=== PATIENT | male | born 1990 | race Caucasian/White ===

== ENCOUNTER 2016-07-16 14:40 | Inpatient (IN) | payer OTHER ==
[~2016-07-16] VITALS: Ht 185.4 cm; Wt 139.6 kg
[2016-07-16 15:31] LABS: AUTOMATED NEUTROPHIL # 2.7 TH/MM3 (1.8-7.7); BASOPHIL % 0.7 % (0.0-2.0); EOSINOPHIL # 0.1 TH/MM3 (0-0.4); EOSINOPHIL % 1.7 % (0.0-4.0); HEMATOCRIT 41.6 % (39.0-51.0); HEMO FLAGS DIFF FINAL; LYMPH % 34.7 % (9.0-44.0); LYMPHOCYTE # 1.8 TH/MM3 (1.0-4.8); MEAN CELL VOLUME 86.6 FL (80.0-100.0); MEAN CORPUSCULAR HEMOGLOBIN 29.5 PG (27.0-34.0); MEAN CORPUSCULAR HGB CONC 34.1 % (32.0-36.0); MONO % 12.7 % (0.0-8.0); NEUT % 50.2 % (16.0-70.0); PLATELET COUNT 290 TH/MM3 (150-450); RED BLOOD COUNT 4.81 MIL/MM3 (4.50-5.90); RED CELL DISTRIBUTION WIDTH 13.7 % (11.6-17.2); WHITE BLOOD COUNT 5.3 TH/MM3 (4.0-11.0)
[2016-07-16 15:37] LABS: BLOOD, URINE NEG (NEG); COMMENT (UR) CULT NOT INDICATED; CULTURE IF INDICATED CULT NOT INDICATED; GLUCOSE,URINE NEG (NEG); KETONE, URINE NEG (NEG); MUCUS URINE FEW /lpf (OCC); NITRITE,URINE NEG (NEG); URINE COLOR YELLOW (YELLW/STRAW)
--- NOTE | 2016-07-16 15:53 | PD ---
HPI Chief Complaint: Medical Clearance Time Seen by Provider: 15:00 Travel History International Travel<30 days: No Contact w/Intl Traveler<30days: No Traveled to known affect area: No History of Present Illness HPI Patient is a 26-year-old male presenting to the emergency Department under Mitchell act for suicidal ideations. Patient states he suffered with depression for most of his life however he was formally diagnosed one year ago. Patient is followed at the [place]. Patient states that he's had suicidal thoughts, last night he thought of hanging himself. He has no previous suicide attempts. Patient previously in the [employer], he was overseas and has been out of his service for approximately one year. Patient has no physical complaints, he does state he suffers with anxiety as well. [facility] Past Medical History Anxiety: Yes Depression: Yes Past Surgical History Surgical History: No Previous Surgery Social History Alcohol Use: No Tobacco Use: Yes (occasionally) Substance Use: No Allergies-Medications (Allergen,Severity, Reaction): Coded Allergies: No Known Allergies (Unverified , 07/16/16) Reported Meds & Prescriptions Reported Meds & Active Scripts Active Reported Prozac (Fluoxetine HCl) 40 Mg Cap 80 Mg PO DAILY Wellbutrin Xl 24 HR (Bupropion HCl) 150 Mg Tab 150 Mg PO DAILY Review of Systems Except as stated in HPI: all other systems reviewed are Neg Psychiatric: Positive: Anxiety, Depression, Suicidal Ideations Physical Exam Narrative GENERAL: Well-developed, well-nourished, alert male. Resting comfortably in no acute distress. SKIN: Warm and dry. HEAD: Atraumatic. Normocephalic. EYES: Pupils equal and round. No scleral icterus. No injection or drainage. ENT: No nasal bleeding or discharge. Mucous membranes pink and moist. NECK: Trachea midline. No JVD. CARDIOVASCULAR: Regular rate and rhythm. No murmur appreciated. RESPIRATORY: No accessory muscle use. Clear to auscultation. Breath sounds equal bilaterally. GASTROINTESTINAL: Abdomen soft, non-tender, nondistended. Hepatic and splenic margins not palpable. MUSCULOSKELETAL: No obvious deformities. No clubbing. No cyanosis. No edema. NEUROLOGICAL: Awake and alert. No obvious cranial nerve deficits. Motor grossly within normal limits. Normal speech. PSYCHIATRIC: Appropriate mood and affect; insight and judgment normal. Data Data Last Documented VS Vital Signs Date Time Temp Pulse Resp B/P Pulse Ox O2 Delivery O2 Flow Rate FiO2 07/16/16 16:00 98.4 70 16 170/74 97 Orders Complete Blood Count With Diff (07/16/16 14:46) Comprehensive Metabolic Panel (07/16/16 14:46) Urinalysis - C+S If Indicated (07/16/16 14:46) Psych Screen (07/16/16 14:46) Drug Screen, Random Urine (07/16/16 14:46) Alcohol (Ethanol) (07/16/16 14:46) Salicylates (Aspirin) (07/16/16 14:46) Tylenol (Acetaminophen) (07/16/16 14:46) Labs Laboratory Tests Test 07/16/16 07/16/16 14:46 15:00 Urine Opiates Screen NEG Urine Barbiturates Screen NEG Urine Amphetamines Screen NEG Urine Benzodiazepines Screen NEG Urine Cocaine Screen NEG Urine Cannabinoids Screen NEG White Blood Count 5.3 TH/MM3 Red Blood Count 4.81 MIL/MM3 Hemoglobin 14.2 GM/DL Hematocrit 41.6 % Mean Corpuscular Volume 86.6 FL Mean Corpuscular Hemoglobin 29.5 PG Mean Corpuscular Hemoglobin 34.1 % Concent Red Cell Distribution Width 13.7 % Platelet Count 290 TH/MM3 Mean Platelet Volume 7.9 FL Neutrophils (%) (Auto) 50.2 % Lymphocytes (%) (Auto) 34.7 % Monocytes (%) (Auto) 12.7 % Eosinophils (%) (Auto) 1.7 % Basophils (%) (Auto) 0.7 % Neutrophils # (Auto) 2.7 TH/MM3 Lymphocytes # (Auto) 1.8 TH/MM3 Monocytes # (Auto) 0.7 TH/MM3 Eosinophils # (Auto) 0.1 TH/MM3 Basophils # (Auto) 0.0 TH/MM3 CBC Comment DIFF FINAL Differential Comment Urine Color YELLOW Urine Turbidity CLEAR Urine pH 6.0 Urine Specific [place] 1.023 Urine Protein NEG mg/dL Urine Glucose (UA) NEG mg/dL Urine Ketones NEG mg/dL Urine Occult Blood NEG Urine Nitrite NEG Urine Bilirubin NEG Urine Urobilinogen LESS THAN 2.0 MG/DL Urine Leukocyte Esterase NEG Urine WBC 1 /hpf Urine Mucus FEW /lpf Microscopic Urinalysis Comment CULT NOT INDICATED Sodium Level 139 MEQ/L Potassium Level 3.8 MEQ/L Chloride Level 104 MEQ/L Carbon Dioxide Level 28.1 MEQ/L Anion Gap 7 MEQ/L Blood Urea Nitrogen 8 MG/DL Creatinine 0.97 MG/DL Estimat Glomerular Filtration 94 ML/MIN Rate Random Glucose 90 MG/DL Calcium Level 9.2 MG/DL Total Bilirubin 0.6 MG/DL Aspartate Amino Transf 36 U/L (AST/SGOT) Alanine Aminotransferase 53 U/L (ALT/SGPT) Alkaline Phosphatase 72 U/L Total Protein 7.9 GM/DL Albumin 4.0 GM/DL Acetaminophen Level LESS THAN 2.0 MCG/ML Ethyl Alcohol Level LESS THAN 3 MG/DL MDM Medical Decision Making Medical Screen Exam Complete: Yes Emergency Medical Condition: Yes Interpretation(s) Vital Signs Date Time Temp Pulse Resp B/P Pulse Ox O2 Delivery O2 Flow Rate FiO2 07/16/16 16:00 98.4 70 16 170/74 97 Differential Diagnosis Mood disorder versus substance abuse versus depression versus anxiety versus suicidal ideations Narrative Course Patient's 26-year-old male who presents emergency Department under [place] act for suicidal ideations. Patient is alert and oriented, cooperative. He does admit to suicidal ideations. Labs reviewed and are unremarkable. Toxicology screen is negative. Patient's vital signs are stable. Patient is medically cleared for psychiatric evaluation. Diagnosis Primary Impression: Medical clearance for psychiatric admission Additional Impression: Depression Qualified Code: F32.9 - Depression, unspecified depression type Condition: Stable Cheri Sexton Jul 16, 2016 15:53
[2016-07-16 16:00] VITALS: BP 170/74; PULSE 70; RESP 16; TEMP 98.4; O2SAT 97
[2016-07-16 16:02] LABS: AMPHETAMINE, URINE NEG (NEG); BARBITURATES, URINE NEG (NEG); COCAINE, URINE NEG (NEG)
[2016-07-16 16:20] LABS: ALT (GPT) 53 U/L (12-78); ANION GAP 7 MEQ/L (5-15); AST (GOT) 36 U/L (15-37); BICARBONATE 28.1 MEQ/L (21.0-32.0); BLOOD UREA NITROGEN 8 MG/DL (7-18); CHLORIDE 104 MEQ/L (98-107); GLOMERULAR FILTRATION RATE 94 ML/MIN (>89); POTASSIUM 3.8 MEQ/L (3.5-5.1); SODIUM (NA) 139 MEQ/L (136-145)
[2016-07-16 16:22] LABS: ALKALINE PHOSPHATASE 72 U/L (45-117); TOTAL BILIRUBIN ADULT 0.6 MG/DL (0.2-1.0)
[2016-07-16 16:23] LABS: ACETAMINOPHEN LESS THAN 2.0 MCG/ML (10.0-30.0)
[2016-07-16] MEDS ORDERED: BUPR150XL PO (17:03)
[2016-07-16] MEDS ORDERED: PROZ40CA PO (17:03)
[2016-07-16 18:49] VITALS: BP 166/90; PULSE 74; RESP 20; TEMP 98.2; O2SAT 97
[2016-07-16] MEDS ORDERED: MAGNESIUM HYDROXIDE SUSP 30 ML CUP PO PRN (22:15)
[2016-07-16] MEDS ORDERED: BENZTROPINE MESYLATE 1 MG TAB PO PRN (22:15)
[2016-07-16] MEDS ORDERED: ALUMINUM/MAGNESIUM/SIMETH 30 ML CUP PO PRN (22:15)
[2016-07-16] MEDS ORDERED: BENZTROPINE MESYLATE 2 MG/2 ML VIAL IM PRN (22:15)
[2016-07-16] MEDS ORDERED: hydrOXYzine HCL 50 MG TAB PO PRN (22:15)
[2016-07-16 22:20] VITALS: BP 142/90; PULSE 67; RESP 19; O2SAT 98
[2016-07-17 00:20] VITALS: BP 155/85; PULSE 72; RESP 16; TEMP 97.8; O2SAT 98
[2016-07-17] MEDS: diphenhydrAMINE HCL 50 MG CAP PO PRN ×2 (00:38→21:53)
[2016-07-17 05:01] VITALS: BP 154/84; PULSE 75; RESP 18; TEMP 97.2; O2SAT 99
[2016-07-17 08:38] LABS: HDL CHOLESTEROL 53.3 MG/DL (40.0-60.0); LDL CHOLESTEROL 84 MG/DL (0-99)
[2016-07-17] MEDS: NICOTINE 21 MG/24 HR PATCH T-DERMAL SCH (09:00)
[2016-07-17] MEDS: REMOVE OLD PATCH T-DERMAL SCH (09:00)
[2016-07-17 13:08] LABS: HEMOGLOBIN A1a 1.1 %; HEMOGLOBIN A1b 1.8 %; HEMOGLOBIN Ao 86.1 %; HEMOGLOBIN LA1C 1.7 %; HEMOGLOBIN P3 3.3 %
--- NOTE | 2016-07-17 13:29 | HHI.HP ---
Provisional Diagnosis Admission Date Jul 16, 2016 at 22:16 [place] I. 1. Irritability 2. Anxiety with obsessional features 3. Other depressive disorder Rule-out Bipolar disorder [place] II. Deferred [place] V. GAF is 40 presently Certification of Person's Competence To Provide Express and Informed Consent I have personally examined Jon Tate , a person being served at [facility] on, Jul 17, 2016 13:19. Express and informed consent means consent voluntarily given in writing, by a competent person, after sufficient explanation and disclosure of the subject matter involved to enable the person to make a knowing and willful decision without any element of force, fraud, deceit, duress, or other form of constraint or coercion. This person is 18 years of age or older, is not now known to be incompetent to consent to treatment with a guardian advocate, and does not have a health care surrogate or proxy currently making medical treatment decisions. I have found this person to be one of the following: [x] Competent to provide express and informed consent, as defined above, for voluntary admission to this facility and is competent to provide express and informed consent for treatment. He/she has the consistent capacity to make well reasoned, willful, and knowing decisions concerning his or her medical or mental health treatment. The person fully and consistently understands the purpose of the admission for examination/placement and is fully capable of personally exercising all rights assured [place] Incompetent to provide express and informed consent to voluntary admission, and this is incompetent to provide express and informed consent to treatment. The person must be transferred to involuntary status and a petition for a guardian advocate filed with the Circuit Court. [] Refusing to provide express and informed consent to voluntary admission but is competent to provide express and informed consent for treatment. The person must be discharged or transferred to involuntary status. Form shall be completed within 24 hours of a person's arrival at the receiving facility and filed in the clinical record of each person: 1. Admitted on a voluntary basis 2. Permitted to provide express and informed consent to his/her own treatment 3. Allowed to transfer from involuntary to voluntary status 4. Prior to permitting a person to consent to his or her own treatment after having been previously found incompetent to consent to treatment. History of Present Illness Capacity: Has Capacity HPI Mr. Tate is a 26-year-old male with a reported history of depression, anxiety, obsession allergy and ADHD who presents under a [place] act from the [place] alleging suicidal thoughts. Reviewing our electronic medical record , I see that this is patient's first visit to [facility]. Patient seen and examined. Chart reviewed. Case discussed with nursing staff on the inpatient psychiatric unit. On my examination today, the patient says that he primarily would like to control irritability and moodiness. He denies any suicidal ideation, intent or plan now but does admit to some suicidal thoughts in the recent past. He says that he would never hurt himself on account of his . He also reports having the urge to punch random people, no specific victim in mind, but he says that he is able to control his urge by channeling his aggression through his martial arts. He does not describe any urge to kill anyone. He denies any history of violent crime or of acting on his violent impulses inappropriately. Mood is generally dysphoric. Sleep is poor, but the patient denies a trauma history and denies any nightmares. He does admit to some periods of insomnia lasting as long as 48 hours but does not describe any associated hypomanic or manic symptoms during these times. Denies any auditory hallucinations. He does describe vague visual phenomena as elucidated more fully in the psychiatric screener's notes, but is not troubled by these currently. There is no evident paranoia, ideas of reference, feelings of thought insertion or withdrawal or other delusional material. The patient does describe some issues with obsession allergy saying that he becomes quite anxious for example when he touches something sticky. He feels like his hands are "coated in gloves of ick" and he feels compelled to wash his hands repeatedly. He denies any other obsessions or compulsions. The remainder of the psychiatric ROS is negative. Past psychiatric history: Patient reports prior diagnoses as noted above. He is treated by medical team at the [place]. He denies any history of psychiatric admissions or suicide attempts. He reports that he is maintained on Prozac 80 mg daily and Wellbutrin 150 mg a day, both of which he has been taking for the last year. He has tried Adderall in the past for his reported attention deficit but says that this significantly worsened his anxiety. Family history: Patient denies any family history of serious mental illness or suicide. Chemical dependency history: Patient reports infrequent use of alcohol, never to excess. He uses electronic cigarettes. Social history: Patient has been for 4 years. He has no children. 2 pet cats. He is supposed to start a new job on Thursday at [employer]. 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 He served in the [employer] but never saw combat and had an honorable discharge. He is a [employer]. He denies any access to guns or firearms. He denies any history of physical, verbal or sexual abuse. Review of Systems Other Patient complains of chronic back pain. No reported headache, vision or hearing changes, chest pain, shortness of breath, bowel or bladder issues. No other physical complaints. Past Psych History Psychological trauma history See above Violence risk - others (6 mos) Indeterminate. Patient reports a degree of irritability but apparently has been successful up until now and channeling it through martial arts. He denies any homicidal ideation. Violence risk - self (6 mos) Indeterminate. Patient admits to recent suicidal ideation but denies any SI, intent or plan at this time. He does seem somewhat depressed. He denies a personal or family history of suicide, nor does he seem to have any active substance use issues. Denies any access to guns or firearms. Substance Abuse History Drugs/Alcohol past 12 months See above Past Family Social History Coded Allergies: No Known Allergies (Unverified , 07/16/16) Past Medical History Includes a history of chronic low back pain. He takes no medications on an outpatient basis. Reported Medications Fluoxetine (Prozac)40 Mg Cap80 Mg PO DAILY #30 CAP Ref 0 07/16/16 Bupropion HCl ER 24 HR (Wellbutrin Xl 24 HR)150 Mg [id number] Mg PO DAILY Ref 0 07/16/16 Current Medications Medications (Trade) Dose Ordered Sig/Julio Route Start Time Stop Time Status Last Admin (Benadryl) 50 mg HS PRN PO 07/16/16 22:15 07/17/16 00:38 (Tylenol) 650 mg Q4H PRN PO 07/16/16 22:15 (Milk Of Magnesia Liq) 30 ml DAILY PRN PO 07/16/16 22:15 (Mag-Al Plus Susp Liq) 30 ml Q6H PRN PO 07/16/16 22:15 (Habitrol 21 Mg Patch.24 Hr) 1 patch DAILY T-DERMAL 07/17/16 09:00 (Atarax) 50 mg Q6H PRN PO 07/16/16 22:15 07/17/16 00:38 (Cogentin) 1 mg Q12H PRN PO 07/16/16 22:15 (Cogentin Inj) 1 mg Q12H PRN IM 07/16/16 22:15 Miscellaneous Information 1 DAILY T-DERMAL 07/17/16 09:00 (Wellbutrin Xl 24 Hr) 150 mg DAILY PO 07/18/16 09:00 UNV (PROzac) 80 mg DAILY PO 07/18/16 09:00 UNV Family History See above Social History See above Patient's Strengths (min. 2) Intelligent. Verbally fluent. Physical Exam Physical examination completed in emergency room by ED provider. On my examination today, patient is in no acute physical distress. No motoric abnormalities noted. He is well-nourished and well-developed. Labs and vital signs reviewed. Vital Signs Vital Signs Date Time Temp Pulse Resp B/P Pulse Ox O2 Delivery O2 Flow Rate FiO2 07/17/16 05:01 97.2 75 18 154/84 99 07/16/16 22:20 Room Air Lab Results Item Value Date Time White Blood Count 5.3 TH/MM3 07/16/16 1500 Hemoglobin 14.2 GM/DL 07/16/16 1500 Platelet Count 290 TH/MM3 07/16/16 1500 Sodium Level 139 MEQ/L 07/16/16 1500 Potassium Level 3.8 MEQ/L 07/16/16 1500 Chloride Level 104 MEQ/L 07/16/16 1500 Carbon Dioxide Level 28.1 MEQ/L 07/16/16 1500 Blood Urea Nitrogen 8 MG/DL 07/16/16 1500 Creatinine 0.97 MG/DL 07/16/16 1500 Hemoglobin A1c 5.6 % 07/17/16 0706 Aspartate Amino Transf (AST/SGOT) 36 U/L 07/16/16 1500 Alanine Aminotransferase (ALT/SGPT) 53 U/L 07/16/16 1500 Alkaline Phosphatase 72 U/L 07/16/16 1500 Toxicology and alcohol level negative. Urinalysis bland. Mental Status Examination Patient is casually dressed. He is well groomed. He is awake and alert and oriented 3. No motoric abnormalities noted. He is somewhat soft-spoken but otherwise speech is within normal limits for rate and tone. Language and fund of knowledge seem above average. Mood is depressed and somewhat irritable and affect is restricted and consistent with stated mood. Thought process linear. No loosening of associations. No evident delusions. Denies audiovisual hallucinations at this time but has been experiencing visual phenomena as noted above. Denies suicidal or homicidal ideation at this time. Insight and judgment seem fair. Assessment & Plan Problem List: (1) Irritability ICD Code: R45.4 (2) Anxiety with obsessional features ICD Code: F41.8 (3) Depression ICD Code: F32.9 Assessment & Plan This is a 26-year-old male with psychiatric history as detailed above who presents under a Mitchell act. On my examination today, patient complains chiefly of moodiness and difficulty with irritability. There are no clear current symptoms of a mixed state, nor is there any clear history of bipolar illness or family history of bipolar illness, but I do think this should be in the differential. He does seem to be somewhat depressed at present and was apparently recently verbalizing suicidal ideation. I do think the patient would benefit from psychiatric hospitalization at this time for safety, observation and stabilization. Admit inpatient. Voluntary status. Check a TSH. Continue home Prozac 80 mg daily and Wellbutrin XL 150 mg daily. Add Depakote ER 500 mg at bedtime. LFTs and platelets okay. We can use this initially for augmentation, although he might benefit from a mood stabilizing dose, which given his weight would likely be in the neighborhood of 1-2.5 g daily. Atarax as needed for anxiety, Cogentin as needed for EPS, Benadryl as needed for sleep. Vitals every shift. Counselor to see. Disposition planning. Estimated length of stay: 5-7 days. Discharge Planning Pending psychiatric stabilization Request HC Surrog/Guard Advoc?: No Problem Qualifiers (1) Depression: Qualified Code: F32.89 - Other depression Torrey Rudolph MD Jul 17, 2016 13:29
[2016-07-17 18:32] VITALS: BP 150/87; PULSE 75; RESP 18; TEMP 98.7; O2SAT 96
[2016-07-17 18:41] VITALS: BP 150/87; PULSE 75; RESP 18; TEMP 98.7; O2SAT 96
[2016-07-17] MEDS ORDERED: DIVALPROEX SODIUM E.R. 500 MG TAB PO SCH (21:00)
[2016-07-17] MEDS: ACETAMINOPHEN 325 MG TAB PO PRN (21:51)
[2016-07-18 05:09] VITALS: BP 101/54; PULSE 75; RESP 18; TEMP 98.1; O2SAT 98
[2016-07-18] MEDS ORDERED: FLUoxetine HCL 20 MG CAP PO SCH (09:00)
[2016-07-18] MEDS ORDERED: buPROPion HCL 150 MG EXTENDED RELEASE TAB PO SCH (09:00)
[2016-07-18] MEDS: NICOTINE 21 MG/24 HR PATCH T-DERMAL SCH (09:00)
[2016-07-18] MEDS: REMOVE OLD PATCH T-DERMAL SCH (09:00)
[2016-07-18] MEDS: ACETAMINOPHEN 325 MG TAB PO PRN (10:39)
[2016-07-18] MEDS ORDERED: DEPA500T3 PO (14:54)
--- NOTE | 2016-07-18 14:54 | HHI.DS ---
Psychiatry Discharge Summary Inpatient Psychiatric care?: Yes Advance Directive: No Reason Not Provided: PATIENT IS NOT INTERESTED Mental Health AdvanceDirective: No Health Care Proxy: No Admission Admission Date Jul 16, 2016 at 22:16 Admission Diagnosis: (1) Irritability ICD Code: R45.4 (2) Anxiety with obsessional features ICD Code: F41.8 (3) Depression ICD Code: F32.9 Brief History Mr. Tate is a 26-year-old male with a reported history of depression, anxiety, obsession allergy and ADHD who presents under a [facility] act from the [facility] alleging suicidal thoughts. Reviewing our electronic medical record , I see that this is patient's first visit to [place]. Patient seen and examined. Chart reviewed. Case discussed with nursing staff on the inpatient psychiatric unit. On my examination today, the patient says that he primarily would like to control irritability and moodiness. He denies any suicidal ideation, intent or plan now but does admit to some suicidal thoughts in the recent past. He says that he would never hurt himself on account of his . He also reports having the urge to punch random people, no specific victim in mind, but he says that he is able to control his urge by channeling his aggression through his martial arts. He does not describe any urge to kill anyone. He denies any history of violent crime or of acting on his violent impulses inappropriately. Mood is generally dysphoric. Sleep is poor, but the patient denies a trauma history and denies any nightmares. He does admit to some periods of insomnia lasting as long as 48 hours but does not describe any associated hypomanic or manic symptoms during these times. Denies any auditory hallucinations. He does describe vague visual phenomena as elucidated more fully in the psychiatric screener's notes, but is not troubled by these currently. There is no evident paranoia, ideas of reference, feelings of thought insertion or withdrawal or other delusional material. The patient does describe some issues with obsession allergy saying that he becomes quite anxious for example when he touches something sticky. He feels like his hands are "coated in gloves of ick" and he feels compelled to wash his hands repeatedly. He denies any other obsessions or compulsions. The remainder of the psychiatric ROS is negative. Past psychiatric history: Patient reports prior diagnoses as noted above. He is treated by medical team at the [facility]. He denies any history of psychiatric admissions or suicide attempts. He reports that he is maintained on Prozac 80 mg daily and Wellbutrin 150 mg a day, both of which he has been taking for the last year. He has tried Adderall in the past for his reported attention deficit but says that this significantly worsened his anxiety. Family history: Patient denies any family history of serious mental illness or suicide. Chemical dependency history: Patient reports infrequent use of alcohol, never to excess. He uses electronic cigarettes. Social history: Patient has been for 4 years. He has no children. 2 pet cats. He is supposed to start a new job on Thursday at [employer]. He is presently a student at [employer]. He served in the [employer] but never saw combat and had an honorable discharge. He is a Anglican. He denies any access to guns or firearms. He denies any history of physical, verbal or sexual abuse. Tobacco Use In Past 30 Days: 4 or Less Cigarettes/Day Alcohol Use: 2-4 Times Per Month Hospital Course Patient was admitted to a locked, inpatient psychiatric unit. Appropriate precautions were in place throughout patient's hospital stay. Patient was seen and examined daily on the unit by psychiatry and also visited by counselor. Medications were adjusted. Patient tolerated medications well without side effects. There was no evidence of any suicidality or homicidality on the inpatient unit. Patient remained in good behavioral control and was medication compliant. Patient has been eating well and sleeping fairly well. On the day of discharge: Patient seen and examined. Chart reviewed. Case discussed with counselor and nurse. No behavioral problems noted. On my examination today, the patient is requesting discharge from the inpatient psychiatric unit. He feels like his condition is improved and his mood is stable. He denies any suicidal or homicidal ideation. He denies any audiovisual hallucinations and I can elicit no delusional beliefs. He feels like the Depakote was helpful for him and would like to continue this medication. He is agreeable to following up on an outpatient basis with psychiatry. He has no somatic complaints and denies side effects from medications. Counselor has reached out the patient's who is agreeable to receiving the patient home today and has no concerns about his safety. After weighing the acute, chronic, and protective factors and based on the available evidence, I placing judge that the patient does not meet criteria for involuntary psychiatric hospitalization at this time. That having been said, I do believe the patient would benefit from additional inpatient psychiatric observation and stabilization. I have strongly recommended this to him, but he has declined and given that I have no basis to retain him involuntarily at this time I will discharge him AGAINST MEDICAL ADVICE. I have explained that he is leaving AGAINST MEDICAL ADVICE and he understands this. Patient is to follow-up psychiatrically as arranged by counselor. Patient is also to follow-up with primary care. I have counseled the patient regarding warning signs for need to return to the psychiatric emergency room as part of a general safety plan. Results Blood Pressure 101 / 54 Vital Signs Date Time Temp Pulse Resp B/P Pulse Ox O2 Delivery O2 Flow Rate FiO2 07/18/16 05:09 98.1 75 18 101/54 98 07/16/16 22:20 Room Air Laboratory Tests Test 07/16/16 07/17/16 15:00 07:06 Monocytes (%) (Auto) 12.7 % (0.0-8.0) Urine Mucus FEW /lpf (OCC) Acetaminophen Level LESS THAN 2.0 MCG/ML (10.0-30.0) Triglycerides Level 158 MG/DL (42-150) Thyroid Stimulating Hormone 0.122 uIU/ML 3rd Gen (0.358-3.740) Laboratory Results Test 07/17/16 07:06 Hemoglobin A1c 5.6 % (4.3-6.0) Triglycerides Level 158 MG/DL (42-150) Cholesterol Level 169 MG/DL (120-200) LDL Cholesterol 84 MG/DL (0-99) HDL Cholesterol 53.3 MG/DL (40.0-60.0) Summary of Procedures None done Imaging None done Pending results at discharge: No Medications # of Antipsychotic meds at D/C: 0 Approp Antipsych med options 1 - Minimum of three failed multiple trials of monotherapy. 2 - Documented plan to taper to monotherapy due to previous use of multiple meds OR cross-taper in progress at D/C. 3 - Documentation of augmentation of Clozapine. 4 - Justification other than those listed in allowable values 1-3, document here : Discharge Discharge Date: Jul 18, 2016 Discharge Diagnosis: (1) Irritability Diagnosis: Principal ICD Code: R45.4 (2) Anxiety with obsessional features Diagnosis: Secondary ICD Code: F41.8 (3) Depression Diagnosis: Secondary ICD Code: F32.9 Mental Status Exam at Disch Patient is casually dressed. He is fairly well groomed. He is awake and alert and oriented 3. No abnormal motor movements noted. Speech is within normal limits for rate, tone and volume. Mood is depressed but affect is a little less irritable today. Thought process linear. No loosening of associations. No evident delusions. Denies audiovisual hallucinations. Denies suicidal or homicidal ideation. Insight and judgment are fair at best. Pt Condition on Discharge: Guarded (AMA discharge) Discharge Disposition: Discharge Home Discharge Instructions Diet Instructions: As Tolerated, No Restrictions Activities you can perform: Weight Bearing as Jacky Scheduled Appointment: [facility] Appointment Date: Jul 18, 2016 New Orders: AMMONIA - 3-5 Days DEPAKENE - 3-5 Days FREE T4 - 3-5 Days TSH 3RD GEN - 3-5 Days New Medications: Divalproex ER (Depakote ER) 500 Mg Rony 500 MG PO Mental Health Days 7 Ref 3 TAB Continued Medications: Bupropion HCl ER 24 HR (Wellbutrin Xl 24 HR) 150 Mg Tab 150 MG PO DAILY Control Depression Ref 0 TAB Fluoxetine (Prozac) 40 Mg Cap 80 MG PO DAILY #30 Ref 0 CAP Discharge Time <= 30 minutes Discharge/Advance Care Plan Health Problems: (1) Irritability (2) Anxiety with obsessional features (3) Depression Goals to promote your health * To prevent worsening of your condition and complications * To maintain your health at the optimal level Directions to meet your goals Take your medications as prescribed Follow your dietary instruction Follow activity as directed Keep your appointments as scheduled Take your immunizations and boosters as scheduled If your symptoms worsen call your PCP, if no PCP go to Urgent Care Center or Emergency Room For 22/12 questions related to your inpatient stay or results of tests pending at discharge, please contact Dr. Torrey Rudolph at Smoking is Dangerous to Your Health. Avoid second hand smoking Problem Qualifiers (1) Depression: Qualified Code: F32.89 - Other depression Torrey Rudolph MD Jul 18, 2016 14:54
== END 2016-07-18 17:10 | disposition left against medical advice (07) | DRG 880 ==
LOC: NEDAMB 14:40 → NEDA 22:16 → H260 07-17 00:15
PROVIDERS: ADMIT Psychiatry & Neurology Psychiatry; ATTEND Psychiatry & Neurology Psychiatry
DX: F41.8 Other specified anxiety disorders (principal); F32.9 Major depressive disorder, single episode, unspecified; R45.4 Irritability and anger; Z72.0 Tobacco use
CPT/HCPCS: 80053; 80061; 80307; 80320; 80329; 81001; 83036; 84443; 85025; 99285; G0480; Q0163